=== PATIENT | male | born 1935 | race Caucasian/White ===

== ENCOUNTER 2017-12-24 14:40 | Emergency (ER) | payer OTHER, MEDICARE ==
--- OUTSIDE RECORDS SUMMARY | 2017-12-24 14:45 | XMS REPORT | Clinical Summary ---
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 Disp. Refills Start Date End Date Status atorvastatin Take 20 mg by 1 03/04/2016 Active (LIPITOR) 20 MG mouth once tablet daily. galantamine ER Take 8 mg by Active (RAZADYNE ER) 8 MG mouth daily 24 hr capsule with breakfast. multivitamin with Take 1 tablet Active minerals tablet by mouth daily. lisinopril Take 20 mg by Active (PRINIVIL,ZESTRIL) mouth daily. 20 mg tablet lisinopril TAKE 1 TABLET 30 tablet 3 11/30/2017 Active (PRINIVIL,ZESTRIL) BY MOUTH 20 mg EVERY DAY tabletIndications: Essential hypertension gabapentin Take by mouth 0 03/02/2016 10/15/2017 Discontinued (NEURONTIN) 300 mg once daily. capsule lisinopril Take 1 tablet 90 tablet 3 05/01/2016 05/20/2017 Discontinued (PRINIVIL,ZESTRIL) (20 mg total) 20 mg by mouth tabletIndications: daily. Essential hypertension clopidogrel Take 1 tablet 90 tablet 3 10/21/2016 10/15/2017 Discontinued (PLAVIX) 75 mg (75 mg total) tabletIndications: by mouth once Coronary artery daily. disease involving [place] heart with angina pectoris, unspecified vessel or lesion type (HCC) lisinopril TAKE 1 TABLET 30 tablet 0 05/21/2017 06/13/2017 Discontinued (PRINIVIL,ZESTRIL) BY MOUTH 20 mg EVERY DAY tabletIndications: Essential hypertension lisinopril TAKE 1 TABLET 30 tablet 0 06/15/2017 10/16/2017 Discontinued (PRINIVIL,ZESTRIL) BY MOUTH 20 mg EVERY DAY tabletIndications: Essential hypertension lisinopril TAKE 1 TABLET 30 tablet 0 06/29/2017 07/07/2017 Discontinued (PRINIVIL,ZESTRIL) BY MOUTH 20 mg EVERY DAY tabletIndications: Essential hypertension aspirin (ECOTRIN) Take 81 mg by 10/17/2017 Discontinued 81 MG enteric mouth daily. coated tablet lisinopril TAKE 1 TABLET 30 tablet 0 09/02/2017 10/02/2017 Discontinued (PRINIVIL,ZESTRIL) BY MOUTH 20 mg EVERY DAY tabletIndications: Essential hypertension lisinopril TAKE 1 TABLET 30 tablet 0 10/02/2017 10/15/2017 Discontinued (PRINIVIL,ZESTRIL) BY MOUTH 20 mg EVERY DAY tabletIndications: Essential hypertension clopidogrel TAKE 1 TABLET 90 tablet 3 10/14/2017 10/17/2017 Discontinued (PLAVIX) 75 mg (75 MG TOTAL) tablet BY MOUTH ONCE DAILY. aspirin (ECOTRIN) Take 1 tablet 30 tablet 6 10/17/2017 11/16/2017 81 MG enteric (81 mg total) coated tablet by mouth daily for 30 days. clopidogrel Take 1 tablet 30 tablet 6 10/17/2017 11/16/2017 (PLAVIX) 75 mg (75 mg total) tablet by mouth daily for 30 days. 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/07 without angina pectoris AVD (aortic valve disease) 07/07/2017 SOB (shortness of breath) 07/07/2017 Bilateral carotid bruits 07/07/2017 Stented coronary artery 04/01/2016 Essential hypertension 04/01/2016 Encounters Date Type Specialty Care Team Description 11/27/2017 Refill Cardiology Charissa Martin Med Raheem Cox MD 11/17/2017 Office Visit Cardiology Charissa Martin Coronary artery disease involving [place] coronary artery of [place] heart without angina pectoris ( Primary Dx); MD Kenny Stented coronary artery 10/28/2017 Refill Cardiology Charissa Martin MD 10/17/2017 Patient Outreach Quality Vanessa Dimas RN 10/16/2017 - Hospital Encounter Cardiology Charissa Martin Abnormal stress test; 10/17/2017 MD Kenny Coronary artery disease involving [place] coronary artery of [place] heart without angina pectoris 10/16/2017 Procedure Pass Procedural Cardiology 10/16/2017 Surgery Procedural Charissa Martin Cv selective Cardiology MD Kenny coronary angiography [86029 (CPT)] 10/14/2017 Refill Cardiology Charissa Martin Med Refill MD Kenny 10/02/2017 Refill Cardiology Charissa Martin Med Refill MD Kenny 09/30/2017 Telephone Cardiology Pascual Ruiz MA Appointment (CATH) 09/30/2017 Orders Only Cardiology Pascual Ruiz MA Abnormal stress test ( Primary Dx); Coronary artery disease involving man[place] coronary artery of [place] heart without angina pectoris 09/29/2017 Office Visit Cardiology Charissa Martin Coronary artery disease involving [place] coronary artery of [place] heart without angina pectoris ( Primary Dx); MD Kenny Abnormal stress test 09/02/2017 Refill Cardiology Charissa Martinill MD Kenny 08/18/2017 Orders Only Cardiology Charissa Martin MD 07/28/2017 Telephone Cardiology Pascual Ruiz MA Results (US carotid + echo) 07/07/2017 Office Visit Cardiology Charissa Martin SOB (shortness of breath) ( Primary Dx); MD Kenny Nonspecific abnormal finding on cardiac evaluation; AVD (aortic valve disease); Coronary artery disease of [place] artery of [place] heart with stable angina pectoris; Bilateral carotid bruits 06/28/2017 Refill Cardiology Charissa Martin Med Refill MD Kenny 06/13/2017 Refill Cardiology Charissa Martinill MD Kenny 05/20/2017 Refill Cardiology Charissa Martin Refjasvir Cox MD after 12/23/2016 Social History Tobacco Use Types Packs/Day Years Used Date Never Smoker Smokeless Tobacco: Never Used Alcohol Use Drinks/Week oz/Week Comments No Sex Assigned at Date Recorded Not on file Last Filed Vital Signs Vital Sign Reading Time Taken Blood Pressure 159/70 11/17/2017 2:46 PM CDT Pulse 63 11/17/2017 2:46 PM CDT Temperature 36.7 C (98 F) 10/17/2017 7:27 AM CDT Respiratory Rate 18 10/17/2017 7:27 AM CDT Oxygen Saturation 98% 10/17/2017 7:27 AM CDT Inhaled Oxygen Concentration - - Weight 78.5 kg (173 lb) 11/17/2017 2:46 PM CDT Height 154.9 cm (5' 1") 11/17/2017 2:46 PM CDT Body Mass Index 32.69 11/17/2017 2:46 PM CDT Plan of Treatment Date Type Specialty Care Team Description 05/18/2018 Office Visit Cardiology Charissa Martin MD [address] [address] Health Maintenance Due Date Last Done Comments SHINGRIX VACCINE (#1) 02/18/1984 ZOSTER VACCINE 1994 PNEUMOCOCCAL POLYSACCHARIDE VACCINE AGE 65 AND OVER 1999 PNEUMOCOCCAL-13 1999 INFLUENZA VACCINE 10/14/2017 Implants Implanted Type Area Brim Plater Device Expiration Model / Identifier Date Serial / Lot Stent Coronary Syst Synergy (Mr) 3.00mm X 20mm - [id number] Coronary N/A: BSC 06/19/2018 [id number] / Implanted: 10/16/2017 (Quantity not on file) Stents N/A INTERVENTIONAL / CARDIOLOGY [id number] Stent Coronary Syst Synergy (Mr) 3.50mm X 12mm - [id number] Coronary N/A: BSC 07/06/2019 [id number] / Implanted: 10/16/2017 (Quantity not on file) Stents N/A INTERVENTIONAL / CARDIOLOGY [id number] System Clsr Sut Meditd 6fr Perclose Proglide - [id number] Surgical N/A: CARDONA VASCULAR 07/14/2019 [id number] / Implanted: 10/16/2017 (Quantity not on file) Implants; N/A DEVICES / Expanders; [id number] Extenders; Surgical Wires Procedures Procedure Name Priority Date/Time Associated Comments Diagnosis ECG 12-LEAD Routine 10/17/2017 6:19 Results for this AM CDT procedure are in the results section. HC COMPLETE BLD COUNT Routine 10/17/2017 5:00 Results for this W/AUTO DIFF AM CDT procedure are in the results section. ZZESTIMATED GFR Routine 10/17/2017 4:00 Results for this AM CDT procedure are in the results section. BASIC METABOLIC PANEL Routine 10/17/2017 4:00 Results for this AM CDT procedure are in the results section. ECG 12-LEAD STAT 10/16/2017 2:44 Results for this PM CDT procedure are in the results section. CV INTRACORONARY STENT Routine 10/16/2017 2:15 Abnormal stress Results for this PLACEMENT W ANGIOPLASTY PM CDT test procedure are in SINGLE MAJOR ARTERY OR Coronary artery the results BRANCH disease involving section. manchester coronary artery of [place] heart without angina pectoris CV SELECTIVE CORONARY Routine 10/16/2017 2:15 Abnormal stress Results for this ANGIOGRAPHY PM CDT test procedure are in Coronary artery the results disease involving section. man[place] coronary artery of [place] heart without angina pectoris POC ACT Routine 10/16/2017 1:31 Results for this PM CDT procedure are in the results section. ACTIVATED CLOTTING TIME Routine 10/16/2017 1:28 Results for this PM CDT procedure are in the results section. ECG PRE/POST OP Routine 10/16/2017 10:45 Results for this AM CDT procedure are in the results section. NM MYOCARDIAL PERFUSION Routine 08/18/2017 12:00 AM CDT ECHOCARDIOGRAM 2D Routine 07/20/2017 1:57 AVD (aortic valve Results for this COMPLETE W MMODE PM CDT disease) procedure are in SPECTRAL COLOR DOPPLER SOB (shortness of the results (04917) breath) section. Coronary artery disease of [place] artery of [place] heart with stable angina pectoris Bilateral carotid bruits US CAROTID DUPLEX Routine 07/16/2017 1:49 AVD (aortic valve Results for this BILATERAL PM CDT disease) procedure are in SOB (shortness of the results breath) section. Coronary artery disease of [place] artery of [place] heart with stable angina pectoris Bilateral carotid bruits ECG 12-LEAD Routine 07/07/2017 9:14 Nonspecific Results for this AM CDT abnormal finding on procedure are in cardiac evaluation the results section. after 12/23/2016 Results ECG 12 lead (10/17/2017 6:19 AM)Only the most recent of3 resultswithin the time period is included. Ventricular rate 56 [facility] Atrial rate 56 [facility] MI interval 146 [facility] QRSD interval 110 [facility] QT interval 436 [facility] QTC interval 420 [facility] P axis 1 43 [facility] QRS axis 1 -3 [facility] T wave axis 44 [facility] MUSE EKG impression Sinus bradycardia-Cannot rule out Anterior [facility] MUSE infarct , age undetermined-Abnormal ECG-In automated comparison with ECG of 16-OCT-2017 14:44,-No significant change was found- Performing Organization Address City/State/Zipcode Phone Number [facility] MUSE [address] [place] [address] CBC with platelet and differential (10/17/2017 5:00 AM) WBC 5.72 4.50 - 11.00 k/uL [facility] DEPARTMENT OF PATHOLOGY AND GENOMIC MEDICINE RBC 4.40 4.40 - 6.00 m/uL [facility] DEPARTMENT OF PATHOLOGY AND GENOMIC MEDICINE HGB 13.0 (L) 14.0 - 18.0 g/dL [facility] DEPARTMENT OF PATHOLOGY AND GENOMIC MEDICINE HCT 39.6 (L) 41.0 - 51.0 % [facility] DEPARTMENT OF PATHOLOGY AND GENOMIC MEDICINE MCV 90.0 82.0 - 100.0 fL [facility] DEPARTMENT OF PATHOLOGY AND GENOMIC MEDICINE MCH 29.5 27.0 - 34.0 pg [facility] DEPARTMENT OF PATHOLOGY AND GENOMIC MEDICINE MCHC 32.8 31.0 - 37.0 g/dL [facility] DEPARTMENT OF PATHOLOGY AND GENOMIC MEDICINE RDW - SD 42.0 37.0 - 55.0 fL [facility] DEPARTMENT OF PATHOLOGY AND GENOMIC MEDICINE MPV 11.2 8.8 - 13.2 fL [facility] DEPARTMENT OF PATHOLOGY AND GENOMIC MEDICINE Platelet count 138 (L) 150 - 400 k/uL [facility] DEPARTMENT OF PATHOLOGY AND GENOMIC MEDICINE Nucleated RBC 0.00 /100 WBC [facility] DEPARTMENT OF PATHOLOGY AND GENOMIC MEDICINE Neutrophils 69.2 (H) 39.0 - 69.0 % [facility] DEPARTMENT OF PATHOLOGY AND GENOMIC MEDICINE Lymphocytes 21.2 (L) 25.0 - 45.0 % [facility] DEPARTMENT OF PATHOLOGY AND GENOMIC MEDICINE Monocytes 8.2 0.0 - 10.0 % [facility] DEPARTMENT OF PATHOLOGY AND GENOMIC MEDICINE Eosinophils 0.9 0.0 - 5.0 % [facility] DEPARTMENT OF PATHOLOGY AND GENOMIC MEDICINE Basophils 0.2 0.0 - 1.0 % [facility] DEPARTMENT OF PATHOLOGY AND GENOMIC MEDICINE Immature granulocytes 0.3Comment: 0.0 - 1.0 % [facility] DEPARTMENT OF "Immature PATHOLOGY AND GENOMIC granulocytes" MEDICINE (promyelocytes, myelocytes, metamyelocytes) Specimen Blood Performing Organization Address [facility] Phone Number [facility] DEPARTMENT OF PATHOLOGY AND [address] [place] [address] Estimated GFR (10/17/2017 4:00 AM) GFR Non Af Amer >90 mL/min/1.73 m2 [facility] DEPARTMENT OF PATHOLOGY AND GENOMIC MEDICINE GFR Af Amer >90 mL/min/1.73 m2 [facility] DEPARTMENT OF Comment: PATHOLOGY AND GENOMIC Chronic kidney disease: <60 mL/min/1.73m2 MEDICINE Kidney failure: <15 mL/min/1.73m2 The estimated GFR is calculated from the IDMS-traceable Modification of Diet in Renal Disease Equation. The accuracy of the calculation is poor when the creatinine is normal. Calculated values >90 mL/min/1.73m2 are not reported. This equation has not been validated in children (<18 years), women, the elderly (>70 years), or ethnic groups other than Caucasians and Americans. Specimen Plasma specimen Performing Organization Address [facility] Centercode Phone Number [facility] DEPARTMENT OF PATHOLOGY AND [address] [place] [address] Basic metabolic panel (10/17/2017 4:00 AM) Sodium 143 135 - 148 mEq/L [facility] DEPARTMENT OF PATHOLOGY AND GENOMIC MEDICINE Potassium 3.9 3.5 - 5.0 mEq/L [facility] DEPARTMENT OF PATHOLOGY AND GENOMIC MEDICINE Chloride 104 98 - 112 mEq/L [facility] DEPARTMENT OF PATHOLOGY AND GENOMIC MEDICINE CO2 27 24 - 31 mEq/L [facility] DEPARTMENT OF PATHOLOGY AND GENOMIC MEDICINE Anion gap 12@ANIO 7 - 15 mEq/L [facility] DEPARTMENT OF PATHOLOGY AND GENOMIC MEDICINE BUN 14 8 - 23 mg/dL [facility] DEPARTMENT OF PATHOLOGY AND GENOMIC MEDICINE Creatinine 0.8 0.7 - 1.2 mg/dL [facility] DEPARTMENT OF PATHOLOGY AND GENOMIC MEDICINE Glucose 105 (H) 65 - 99 mg/dL [facility] DEPARTMENT OF PATHOLOGY AND GENOMIC MEDICINE Calcium 9.1 8.8 - 10.2 mg/dL [facility] DEPARTMENT OF PATHOLOGY AND GENOMIC MEDICINE Specimen Plasma specimen Performing Organization Address [facility] Centercode Phone Number [facility] DEPARTMENT OF PATHOLOGY AND [address] [place], [place] [id number] [facility] 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 Medical management of the LCX stenosis Performing Organization Address [facility] Centerconh Phone Number [facility] [address] [place] [address] POC ACT (10/16/2017 1:31 PM) Activated clotting time, POC 382 seconds Specimen Blood Activated clotting time (10/16/2017 1:28 PM) Activated clotting time 382 (H) 96 - 152 sec [facility] DEPARTMENT OF Comment: PATHOLOGY AND GENOMIC Meter ID: [id number] MEDICINE Court Commissioner: Leny Sanchez Performing Organization Address [facility] Phone Number [facility] DEPARTMENT OF PATHOLOGY AND [address] [place] [address] GENOMIC MEDICINE ECG Pre/Post Op (in AM) (10/16/2017 10:45 AM) Ventricular rate 59 [facility] MUSE Atrial rate 59 [facility] MUSE MI interval 152 [facility] MUSE QRSD interval 112 [facility] MUSE QT interval 422 [facility] M[facility] QTC interval 417 [facility] MUSE P axis 1 54 [facility] MUSE QRS axis 1 -1 [facility] MUSE T wave axis 42 [facility] MUSE EKG impression Sinus bradycardia-Incomplete right bundle branch block- Borderline ECG-In automated comparison with ECG of 07-JUL-2017 09:14,- Incomplete right bundle branch block is now present-Criteria for Septal infar [facility] MUSE ct are no longer present- Performing Organization Address [facility] Phone Number [facility] MUSE [address] [place] [address] Nm myocardial perfusion (08/18/2017) Narrative Performed At Echocardiogram complete w contrast and 3D if needed (07/20/2017 1:57 PM) Narrative Performed At [facility] Echocardiography Report Pat.Name:SHANTA PATIÑO Pat.ID:[id number] .Date: 07/20/2017Refer.MD:CHARISSA MARTIN MD Exam Time: 2:04:00 PMStudy Type:Routine Echo Height:70inWeight: 176lb BSA: 1.98 m2 DOBAge:1935,82Y Sex: MALEBP:135/60 HR:58 bpm Sonogrphr: NAVEED Felix FASE Pat. Stat.:OutpatientRoom:[facility] Study Status:Final Echo Event ID:[id number] Order ID:[id number] Reason for Study:Coronary artery disease of [place] artery of [place] heart with stable angina pectoris History / Clinical:Shortness of Breath Procedures:2D Echo, Colorflow Doppler Race:C SUMMARY: LV size is normal. LV EF is normal. Estimated EF is 65-69% RV size is normal. RV systolic function is normal. Estimated PA systolic pressure is 25 mmHg, assuming a mean RAP of 5 mmHg. Moderate thickening and calcification of AV leaflets. Mild aortic valve stenosis. FINDINGS: LV: LV size is normal. LV EF is normal. Overall wall motion is normal.Estimated EF is 65-69% RV: RV size is normal. RV systolic function is normal. LA: LA volume is mildly enlarged. RA: RA size is normal. AO: Aortic root diameter is normal. BRAYDEN: No pericardial effusion. IAS:Interatrial septum is thickened consistent with lipomatous hypertrophy. AV: Moderate thickening and calcification of AV leaflets. A traceof aortic regurgitation. Mild aortic valve stenosis. MV: Moderate mitral annular calcification. PV: No structural PV abnormalities noted. A trace of pulmonic regurgitation. TV: No structural TV abnormalities noted. Mild tricuspid regurgitation Other:Estimated PA systolic pressure is 25 mmHg, assuming a mean RAPof 5 mmHg. MEASUREMENTS: 2D Parasternal [place] LVIDd5.5 cmIndex2.8 cm/m LA Ds4.4 cm LVIDs3.5 cmAo Rtd 3.4 cm Index1.7 cm/m LV%fs 36.8 % LV Bbes410.2 g(122-174) IVSd 0.9 cmLVM Index 88.5 g/m2 LVPWd0.8 cmRWT0.3 LA Sng Plane LA Area 21.4 cm2(8.8-23.4) LA Vol71.2 ml Index36 ml/m LA LngAx 5.4 cm DOPPLER AV For Flow/DEEPAK AV pkVel 247.5 cm/s (100-170) AV AC/ET 0.3 AV mnVel 182.2 cm/Jazmyne TVI52.7 cm AV pkPG 24.5 mmHgAVpkAcRt 40261.4 cm/s2 AV Mean G 14.9 mmHgAV PuIa533.3 cm/s2 AV AC 79 msec (83-118) AV Area1.2 cm2(3-5) AV ET289 msec LVOT For Flow LVOT Area3.1 cm2 LVOT SV 65.2 ml LVOTpkVel 89.9 cm/sHR59.4 bpm LVOTpkPG 3.2 mmHgLVOT CO3.9 l/min LVOTmnPG 1.9 mmHgLVOT CI2 l/m/m2 LVOT TVI20.9 cm Signed 07/20/2017 03:21 PM Matteo Ramos M.D. Procedure Note Interface, Radiology Results In - 07/20/2017 3:22 PM CDT [facility] Echocardiography Report Pat.Name: DAISHANTA CRAWLEY Terri.ID: [id number] .Date: 07/20/2017 Refer.MD: CHARISSA MARTIN MD Exam Time: 2:04:00 PM Study Type:Routine Echo Height: 70in Weight: 176lb BSA: 1.98 m2 Age: 11 1935,82Y Sex: MALE BP: 135/60 HR: 58 bpm Sonogrphr: NAVEED Felix FASE Pat. Stat.:Outpatient Room: [facility] Study Status:Final Echo Event ID:[id number] Order ID: [id number] Reason for Study:Coronary artery disease of [place] artery of [place] heart with stable angina pectoris History / Clinical:Shortness of Breath Procedures:2D Echo, Colorflow Doppler Race: C SUMMARY: LV size is normal. LV EF is normal. Estimated EF is 65-69% RV size is normal. RV systolic function is normal. Estimated PA systolic pressure is 25 mmHg, assuming a mean RAP of 5 mmHg. Moderate thickening and calcification of AV leaflets. Mild aortic valve stenosis. FINDINGS: LV: LV size is normal. LV EF is normal. Overall wall motion is normal. Estimated EF is 65-69% RV: RV size is normal. RV systolic function is normal. LA: LA volume is mildly enlarged. RA: RA size is normal. AO: Aortic root diameter is normal. BRAYDEN: No pericardial effusion. IAS: Interatrial septum is thickened consistent with lipomatous hypertrophy. AV: Moderate thickening and calcification of AV leaflets. A trace of aortic regurgitation. Mild aortic valve stenosis. MV: Moderate mitral annular calcification. PV: No structural PV abnormalities noted. A trace of pulmonic regurgitation. TV: No structural TV abnormalities noted. Mild tricuspid regurgitation Other: Estimated PA systolic pressure is 25 mmHg, assuming a mean RAP of 5 mmHg. MEASUREMENTS: 2D Parasternal [place] LVIDd 5.5 cm Index 2.8 cm/m LA Ds 4.4 cm LVIDs 3.5 cm Ao Rtd 3.4 cm Index 1.7 cm/m LV%fs 36.8 % LV Mass 175.2 g (122-174) IVSd 0.9 cm LVM Index 88.5 g/m2 LVPWd 0.8 cm RWT 0.3 LA Sng Plane LA Area 21.4 cm2 (8.8-23.4) LA Vol 71.2 ml Index 36 ml/m LA LngAx 5.4 cm DOPPLER AV For Flow/DEEPAK AV pkVel 247.5 cm/s (100-170) AV AC/ET 0.3 AV mnVel 182.2 cm/s AV TVI 52.7 cm AV pkPG 24.5 mmHg AVpkAcRt 98808.4 cm/s2 AV Mean G 14.9 mmHg AV DeRt 855.3 cm/s2 AV AC 79 msec (83-118) AV Area 1.2 cm2 (3-5) AV ET 289 msec LVOT For Flow LVOT Area 3.1 cm2 LVOT SV 65.2 ml LVOTpkVel 89.9 cm/s HR 59.4 bpm LVOTpkPG 3.2 mmHg LVOT CO 3.9 l/min LVOTmnPG 1.9 mmHg LVOT CI 2 l/m/m2 LVOT TVI 20.9 cm Signed 07/20/2017 03:21 PM Matteo Ramos M.D. Performing Organization Address City/State/Zipcode Phone Number [facility] [address] [place] [address] Pv carotid duplex (07/16/2017 1:49 PM) Narrative Performed At [facility] Carotid Artery Ultrasound Report Pat.Name:DAISHANTA CRAWLEY Terri.ID:[id number] .Date: 07/16/2017Refcristina.:CHARISSA MARTIN MD Exam Time: 2:04:00 PMStudy Type:Carotid DOBAge:1935,82Y Sex: MALE Sonogrphr: Tanja Bardales, ANNAMS, RDCS, RVT Pat. Stat.:Outpatient Room:[place] [address]: [id number] Echo Event ID:[id number] Order ID:[id number] Reason for Study:Bilateral carotid bruit SUMMARY: PHYSICAL ASSESSMENT BloodPulsesCarotid Pressure Carotid TemporalBruit Right 135/60 ++0 Left 135/60 ++0 CAROTID ARTERY SCAN RIGHT:There is intimal thickeningin the common carotid artery. There is hard and calcified plaque noted in the bulb extending into the proximal internal and external carotid artery.Colorflow is minimally disturbed.Vertebral artery flow is antegrade. Subclavian artery flow is triphasic. LEFT: There is intimal thickeningin the common carotid artery. There is hard and calcified plaque noted in the bulb extending into the proximal internal and external carotid artery.Colorflow is minimally disturbed.Vertebral artery flow is antegrade. Subclavian artery flow is triphasic. PRELIMINARY FINDINGS <50%stenosis in the bilateral internal carotid artery. PHYSICIAN INTERPRETATION Bilateral carotid artery examination demonstrates plaque in the bilateral internal carotid artery without hemodynamically significant stenosis. (30-40%) Carotid Findings:RightLeft Verteb.Flw AntegradeAntegrade Subclavian TriphasicTriphasic MEASUREMENTS: DOPPLER Right SCA Prox SCA Prox PSV82.3 cm/s Right CCA Dist CCA Dist PSV68.6 cm/sCCA Dist EDV6.09 cm/s Right CCA Mid CCA Mid PSV 71.6 cm/sCCA Mid EDV 6.09 cm/s Right CCA Prox CCA Prox PSV57.9 cm/sCCA Prox EDV 0 cm/s Right Bulb Bulb PSV51.1 cm/sBulb EDV1.89 cm/s Right ECA Prox ECA Prox PSV 102 cm/sECA Prox EDV 0 cm/s Right ICA Dist ICA Dist PSV65.4 cm/Clarissa Dist EDV11.8 cm/s Right ICA Mid ICA Mid PSV 63.6 cm/Clarissa Mid EDV 13.4 cm/s Right ICA Prox ICA Prox PSV75.4 cm/Clarissa Prox EDV6.85 cm/s Right Vertebral Vertebral PSV 48.2 cm/sVertebral EDV0 cm/s Left SCA Prox SCA Prox PSV 114 cm/s Left CCA Dist CCA Dist PSV56.7 cm/sCCA Dist EDV8.11 cm/s Left CCA Mid CCA Mid PSV 77.1 cm/sCCA Mid EDV9.4 cm/s Left CCA Prox CCA Prox PSV82.7 cm/sCCA Prox EDV 9.4 cm/s Left Bulb Bulb PSV56.1 cm/sBulb EDV 0 cm/s Left ECA Prox ECA Prox PSV 177 cm/s Left ICA Dist ICA Dist PSV65.7 cm/Clarissa Dist EDV6.91 cm/s Left ICA Mid ICA Mid PSV 75.3 cm/Clarissa Mid EDV 16.3 cm/s Left ICA Prox ICA Prox PSV68.5 cm/Clarissa Prox EDV8.79 cm/s Left Vertebral Vertebral PSV 32.8 cm/sVertebral EDV0 cm/s Right ICA/CCA Ratio ICA/CCA PSV 1.05 Left ICA/CCA Ratio ICA/CCA PSV0.888 Signed 07/23/2017 01:11 PM Charissa Martin MD Procedure Note Interface, Radiology Results In - 07/23/2017 1:11 PM CDT [facility] Carotid Artery Ultrasound Report Pat.Name: SHANTA PATIÑO Pat.ID: [id number] St.Date: 07/16/2017 Refer.MD: CHARISSA MARTIN MD Exam Time: 2:04:00 PM Study Type:Carotid Age: 12 1935,82Y Sex: MALE Sonogrphr: Tanja Bardales RDMS, RDCS, RVT Pat. Stat.:Outpatient Room: [facility] 4: [id number] Echo Event ID:[id number] Order ID: [id number] Reason for Study:Bilateral carotid bruit SUMMARY: PHYSICAL ASSESSMENT Blood Pulses Carotid Pressure Carotid Temporal Bruit Right 135/60 + + 0 Left 135/60 + + 0 CAROTID ARTERY SCAN RIGHT: There is intimal thickening in the common carotid artery. There is hard and calcified plaque noted in the bulb extending into the proximal internal and external carotid artery. Colorflow is minimally disturbed. Vertebral artery flow is antegrade. Subclavian artery flow is triphasic. LEFT: There is intimal thickening in the common carotid artery. There is hard and calcified plaque noted in the bulb extending into the proximal internal and external carotid artery. Colorflow is minimally disturbed. Vertebral artery flow is antegrade. Subclavian artery flow is triphasic. PRELIMINARY FINDINGS <50% stenosis in the bilateral internal carotid artery. PHYSICIAN INTERPRETATION Bilateral carotid artery examination demonstrates plaque in the bilateral internal carotid artery without hemodynamically significant stenosis. (30-40%) Carotid Findings: Right Left Verteb.Flw Antegrade Antegrade Subclavian Triphasic Triphasic MEASUREMENTS: DOPPLER Right SCA Prox SCA Prox PSV 82.3 cm/s Right CCA Dist CCA Dist PSV 68.6 cm/s CCA Dist EDV 6.09 cm/s Right CCA Mid CCA Mid PSV 71.6 cm/s CCA Mid EDV 6.09 cm/s Right CCA Prox CCA Prox PSV 57.9 cm/s CCA Prox EDV 0 cm/s Right Bulb Bulb PSV 51.1 cm/s Bulb EDV 1.89 cm/s Right ECA Prox ECA Prox PSV 102 cm/s ECA Prox EDV 0 cm/s Right ICA Dist ICA Dist PSV 65.4 cm/s ICA Dist EDV 11.8 cm/s Right ICA Mid ICA Mid PSV 63.6 cm/s ICA Mid EDV 13.4 cm/s Right ICA Prox ICA Prox PSV 75.4 cm/s ICA Prox EDV 6.85 cm/s Right Vertebral Vertebral PSV 48.2 cm/s Vertebral EDV 0 cm/s Left SCA Prox SCA Prox PSV 114 cm/s Left CCA Dist CCA Dist PSV 56.7 cm/s CCA Dist EDV 8.11 cm/s Left CCA Mid CCA Mid PSV 77.1 cm/s CCA Mid EDV 9.4 cm/s Left CCA Prox CCA Prox PSV 82.7 cm/s CCA Prox EDV 9.4 cm/s Left Bulb Bulb PSV 56.1 cm/s Bulb EDV 0 cm/s Left ECA Prox ECA Prox PSV 177 cm/s Left ICA Dist ICA Dist PSV 65.7 cm/s ICA Dist EDV 6.91 cm/s Left ICA Mid ICA Mid PSV 75.3 cm/s ICA Mid EDV 16.3 cm/s Left ICA Prox ICA Prox PSV 68.5 cm/s ICA Prox EDV 8.79 cm/s Left Vertebral Vertebral PSV 32.8 cm/s Vertebral EDV 0 cm/s Right ICA/CCA Ratio ICA/CCA PSV 1.05 Left ICA/CCA Ratio ICA/CCA PSV 0.888 Signed 07/23/2017 01:11 PM Charissa Martin MD Performing Organization Address City/State/[place] Phone Number [address] [phone] [place] [address] after 12/23/2016 Insurance Payer Benefit Plan / Group Subscriber ID Type Phone Address MEDICARE MEDICARE PART A AND B xxxxxxxxxx Medicare [place], [place] AARP AARP SUPPLEMENT xxxxxxxxxxx Commercial Home: [address] [phone] [place], [place] [phone]
--- OUTSIDE RECORDS SUMMARY | 2017-12-24 14:45 | XMS REPORT | Continuity of Care Document ---
:1935 Author Organization Interface Problems Problem Status Onset Date Classification Date Comments Source Reported Medications Medication Details Route Status Patient Ordering Order Source Instructions Provider Date Allergies, Adverse Reactions, Alerts Substance Category Reaction Severity Reaction Status Date Comments Source type Reported Immunizations Immunization Date Given Site Status Last Updated Comments Source Results Order Results Value Reference Date Interpretation Comments Source Name Range Vital Signs Vital Sign Value Date Comments Source Encounters Location Location Encounter Encounter Reason Attending ADM DC Status Source Details Type Number For Provider Date Date Visit Outpatient [id number] CANDY 12/01 [facility] [address] [place] [address] Outpatient [id number] CANDY 12/[address] Procedures Procedure Code Date Perfomer Comments Source
[2017-12-24 16:04] LABS: Absolute Lymphocytes (CBC) 0.4 K/uL (0.7-4.9); Absolute Monocytes 0.3 K/uL (0.1-1.3); Absolute Neutrophil 7.1 K/uL (1.8-8.0); Basophils % 0.2 % (0-1.3); Eosinophils % 0.3 % (0-4.4); Hematocrit 36.8 % (39.6-49.0); MCH 30.8 pg (27.0-35.0); MCV 86.9 fL (80-100); MPV 9.1 fL (7.6-11.3); Monocytes % 3.5 % (3.3-12.3); RBC Red Blood Cell Count 4.24 M/uL (4.33-5.43)
[2017-12-24 16:06] LABS: Protime INR 0.96
[2017-12-24 16:24] LABS: ALT/SGPT 36 U/L (12-78); AST/SGOT 40 U/L (15-37); Albumin 3.8 g/dL (3.4-5.0); Alkaline Phosphatase 80 U/L (45-117); BUN Blood Urea Nitrogen 22 mg/dL (7-18); Bicarbonate 28 mmol/L (21-32); Bilirubin Direct 0.1 mg/dL (0-0.2); Bilirubin Total 0.3 mg/dL (0.2-1.0); Glucose Level 133 mg/dL (74-106); Potassium 3.9 mmol/L (3.5-5.1); Protein, Total 6.6 g/dL (6.4-8.2); Sodium Level 139 mmol/L (136-145)
--- NOTE | 2017-12-24 16:30 | RAD REPORT ---
EXAM DESCRIPTION: Cailin Single View12/24/2017 4:11 pm CLINICAL HISTORY: fever COMPARISON: none FINDINGS: The lungs appear clear of acute infiltrate. The heart is normal size IMPRESSION: No acute abnormalities displayed
[2017-12-24 16:51] LABS: Blood Morphology Comment NOT SEEN (NOT SEEN); Platelet Estimate ADEQ; Urine White Blood Cell Casts OK
[2017-12-24 18:24] LABS: Urine Blood NEGATIVE (NEG); Urine Glucose NEGATIVE (NEG); Urine Protein NEGATIVE (NEG); Urine pH 5.5 (5.0-7.0)
[2017-12-24 19:08] LABS: Urine Bacteria <20 /HPF (NONE SEEN); Urine Culture Reflex Order NOT NEEDED; Urine RBC <5 /HPF (NONE SEEN)
[2017-12-24] MEDS ORDERED: NA CHLORIDE 0.9% 500 ML ONE (19:30)
--- NOTE | 2017-12-24 19:37 | ER ---
Nurse's Notes [facility] Name: Tiago Patiño Age: 82 yrs Sex: Male : 1935 Arrival Date: 12/24/2017 Time: 14:43 Bed 23 Private MD: Diagnosis: Fever, unspecified;Viral infection, unspecified Presentation: 12/24 14:43 Presenting complaint: EMS states: called out for difficulty standing and pain in mid em back pain, hx of UTI's, denies trauma, low grade temp 101.2, currently denies pain, VSS. Transition of care: patient was not received from another setting of care. Onset of symptoms was December 24, 2017. Care prior to arrival: None. 14:43 Method Of Arrival: EMS: [facility] em 14:54 Care prior to arrival: Medication(s) given: Tylenol. em 14:54 Acuity: SCOTT 3 hb 14:54 Risk Assessment: Do you want to hurt yourself or someone else? Patient reports no hb desire to harm self or others. 16:05 Initial Sepsis Screen: Does the patient meet any 2 criteria? No. Patient's initial kr2 sepsis screen is negative. Does the patient have a suspected source of infection? No. Patient's initial sepsis screen is negative. Triage Assessment: 14:47 General: Appears in no apparent distress. comfortable, Behavior is calm, cooperative. em Pain: Denies pain. Historical: - Allergies: 14:47 No Known Allergies; em - PMHx: 14:47 UTI; em - PSHx: 14:47 Heart stents; em - Immunization history:: Flu vaccine is not up to date. - Social history:: Smoking status: Patient/guardian denies using tobacco. - Ebola Screening: : Patient negative for fever greater than or equal to 101.5 degrees Fahrenheit, and additional compatible Ebola Virus Disease symptoms Patient denies exposure to infectious person Patient denies travel to an Ebola-affected area in the 21 days before illness onset No symptoms or risks identified at this time. Screenin:48 Abuse screen: Denies threats or abuse. Nutritional screening: No deficits noted. em Tuberculosis screening: No symptoms or risk factors identified. Fall Risk None identified. Assessment: 15:15 General: Appears in no apparent distress. comfortable, well groomed, well developed, kr2 well nourished, Behavior is calm, cooperative, appropriate for age. Pain: Denies pain. Pain: Complains of pain in Patient's spouse reports he was complaining of back pain earlier today, patient is confused at times. Neuro: Level of Consciousness is awake, alert, obeys commands, Oriented to person, place, situation. Cardiovascular: Capillary refill Patient's skin is warm and dry. Respiratory: Airway is patent Respiratory effort is even, unlabored, Respiratory pattern is regular, symmetrical. GI: Abdomen is flat, non-distended, Abd is soft and non tender X 4 quads. : Denies burning with urination, Parent/caregiver report the patient having Patient does have a history of UTI's. Derm: Skin is intact, is healthy with good turgor, Skin is pink, warm \T\ dry. Musculoskeletal: Circulation, motion, and sensation intact. 16:15 Reassessment: Patient appears in no apparent distress at this time. Patient and/or kr2 family updated on plan of care and expected duration. Pain level reassessed. Patient is alert, oriented x 3, equal unlabored respirations, skin warm/dry/pink. Patient denies pain at this time. 17:39 Reassessment: Patient appears in no apparent distress at this time. Patient and/or kr2 family updated on plan of care and expected duration. Pain level reassessed. Patient is alert, oriented x 3, equal unlabored respirations, skin warm/dry/pink. Per provider ok to give patient water, patient provided with 2 cups of water Patient denies pain at this time. 18:55 Reassessment: Patient appears in no apparent distress at this time. Patient and/or kr2 family updated on plan of care and expected duration. Pain level reassessed. Patient is alert, oriented x 3, equal unlabored respirations, skin warm/dry/pink. Patient denies pain at this time. 19:42 Reassessment: Waiting for IV fluids to complete prior to discharge. kr2 Vital Signs: 14:47 BP 144 / 57; Pulse 79; Resp 16; Temp 100.2(O); Pulse Ox 96% on R/A; Pain 0/10; em 16:06 BP 116 / 51; Pulse 70; Resp 19; Pulse Ox 95% on R/A; kr2 17:38 BP 135 / 61; Pulse 63; Resp 17; Temp 99.2; Pulse Ox 99% on R/A; kr2 18:55 BP 125 / 55; Pulse 60; Resp 17; Pulse Ox 96% on R/A; kr2 19:30 BP 128 / 56; Pulse 62; Resp 17; Pulse Ox 99% on R/A; kr2 ED Course: 14:43 Patient arrived in ED. em 14:47 Arm band placed on. em 14:48 Patient has correct armband on for positive identification. Placed in gown. Bed in low em position. Call light in reach. Side rails up X2. 14:53 Bryan Cramer NP is PHCP. pm1 14:53 Ray Stark MD is Attending Physician. pm1 14:58 Triage completed. hb 15:25 Missed attempt(s): 20 gauge in right forearm. Bleeding controlled, band aid applied, kr2 catheter tip intact. 15:40 Inserted saline lock: 20 gauge in right forearm, using aseptic technique. Blood kr2 collected. 16:06 Cyndee Stockton, MAGGIE is Primary Nurse. kr2 16:12 Chest Single View XRAY In Process Unspecified. EDMS 20:11 No provider procedures requiring assistance completed. IV discontinued, intact, kr2 bleeding controlled, No redness/swelling at site. Pressure dressing applied. Administered Medications: 19:27 Drug: NS 0.9% 500 ml Route: IV; Rate: bolus; Site: right forearm; kr2 20:10 Follow up: Response: No adverse reaction; IV Status: Completed infusion kr2 Outcome: 19:36 Discharge ordered by MD. pm1 20:11 Discharged to home via wheelchair, with family, with friend. kr2 20:11 Condition: good 20:11 Discharge instructions given to family, Instructed on discharge instructions, follow up and referral plans. Demonstrated understanding of instructions, follow-up care. 20:12 Patient left the ED. kr2 Signatures: Dispatcher [employer] EDMS Sen Barnard, BALL ROLLING MACHINE OPERATOR BALL ROLLING MACHINE OPERATOR em Bryan Cramer NP PARK INTERPRETIVE RANGER pm1 Cassy Carl, RN RN hb Cyndee Stockton, MAGGIE RN kr2 Corrections: (The following items were deleted from the chart) 17:43 17:38 BP 135 / 61; Pulse 63bpm; Resp 17bpm; Pulse Ox 99% RA; kr2 kr2
--- NOTE | 2017-12-24 19:37 | EDPHYS ---
Physician Documentation [facility] Name: Tiago Patiño Age: 82 yrs Sex: Male : 1935 Arrival Date: 12/24/2017 Time: 14:43 Bed 23 Private MD: ED Physician Ray Stark HPI: 12/24 16:00 This 82 yrs old Male presents to ER via EMS with complaints of Fever. pm1 16:00 The patient reports fever, that was measured at 101.2 degrees Fahrenheit. Onset: The pm1 symptoms/episode began/occurred just prior to arrival, today. Modifying factors: there are no obvious modifying factors. Associated signs and symptoms: Pertinent negatives: abdominal pain, backache, chest pain, cough, diarrhea, earache, headache, nausea, runny nose, sinus congestion, sinus drainage, skin rash, shortness of breath, sore throat, vomiting. Severity of symptoms: in the emergency department the symptoms No complaints in the ER. The patient has not experienced similar symptoms in the past. The patient has not recently seen a physician. Historical: - Allergies: 14:47 No Known Allergies; em - PMHx: 14:47 UTI; em - PSHx: 14:47 Heart stents; em - Immunization history:: Flu vaccine is not up to date. - Social history:: Smoking status: Patient/guardian denies using tobacco. - Ebola Screening: : Patient negative for fever greater than or equal to 101.5 degrees Fahrenheit, and additional compatible Ebola Virus Disease symptoms Patient denies exposure to infectious person Patient denies travel to an Ebola-affected area in the 21 days before illness onset No symptoms or risks identified at this time. ROS: 16:00 Eyes: Negative for injury, pain, redness, and discharge, ENT: Negative for injury, pm1 pain, and discharge, Neck: Negative for injury, pain, and swelling, Cardiovascular: Negative for chest pain, palpitations, and edema, Respiratory: Negative for shortness of breath, cough, wheezing, and pleuritic chest pain, Abdomen/GI: Negative for abdominal pain, nausea, vomiting, diarrhea, and constipation, Back: Negative for injury and pain, : Negative for injury, bleeding, discharge, and swelling, MS/Extremity: Negative for injury and deformity, Skin: Negative for injury, rash, and discoloration, Neuro: Negative for headache, weakness, numbness, tingling, and seizure. 16:00 Constitutional: Positive for body aches, fever. Exam: 16:00 Constitutional: This is a well developed, well nourished patient who is awake, alert, pm1 and in no acute distress. Head/Face: Normocephalic, atraumatic. Eyes: Pupils equal round and reactive to light, extra-ocular motions intact. Lids and lashes normal. Conjunctiva and sclera are non-icteric and not injected. Cornea within normal limits. Periorbital areas with no swelling, redness, or edema. ENT: Nares patent. No nasal discharge, no septal abnormalities noted. Tympanic membranes are normal and external auditory canals are clear. Oropharynx with no redness, swelling, or masses, exudates, or evidence of obstruction, uvula midline. Mucous membranes moist. Neck: Trachea midline, no thyromegaly or masses palpated, and no cervical lymphadenopathy. Supple, full range of motion without nuchal rigidity, or vertebral point tenderness. No Meningismus. Chest/axilla: Normal chest wall appearance and motion. Nontender with no deformity. No lesions are appreciated. Cardiovascular: Regular rate and rhythm with a normal S1 and S2. No gallops, murmurs, or rubs. Normal PMI, no JVD. No pulse deficits. Respiratory: Lungs have equal breath sounds bilaterally, clear to auscultation and percussion. No rales, rhonchi or wheezes noted. No increased work of breathing, no retractions or nasal flaring. Abdomen/GI: Soft, non-tender, with normal bowel sounds. No distension or tympany. No guarding or rebound. No evidence of tenderness throughout. Back: No spinal tenderness. No costovertebral tenderness. Full range of motion. Skin: Warm, dry with normal turgor. Normal color with no rashes, no lesions, and no evidence of cellulitis. MS/ Extremity: Pulses equal, no cyanosis. Neurovascular intact. Full, normal range of motion. 16:00 Neuro: Orientation: is normal, Mentation: is normal, Cerebellar function: normal finger to nose testing, Motor: is normal, moves all fours, Sensation: is normal, no obvious gross deficits. 19:30 Neuro: Gait: is steady, at a normal pace, without difficulty. pm1 Vital Signs: 14:47 BP 144 / 57; Pulse 79; Resp 16; Temp 100.2(O); Pulse Ox 96% on R/A; Pain 0/10; em 16:06 BP 116 / 51; Pulse 70; Resp 19; Pulse Ox 95% on R/A; kr2 17:38 BP 135 / 61; Pulse 63; Resp 17; Temp 99.2; Pulse Ox 99% on R/A; kr2 18:55 BP 125 / 55; Pulse 60; Resp 17; Pulse Ox 96% on R/A; kr2 19:30 BP 128 / 56; Pulse 62; Resp 17; Pulse Ox 99% on R/A; kr2 MDM: 14:54 Patient medically screened. pm1 19:30 Refusal of service: The patient/guardian displays adequate decision making capability pm1 and despite a detailed discussion of alternatives, benefits, risks, and consequences refuses: Admission to the hospital for further work-up and treatment, Patient feels good and has no complaints. He does not want to stay in the hospital and his is in agreement with his decision. Patient and educated on return precautions. 19:33 Data reviewed: vital signs. Data interpreted: Pulse oximetry: on room air is 96 %. pm1 Interpretation: normal. Counseling: I had a detailed discussion with the patient and/or guardian regarding: the historical points, exam findings, and any diagnostic results supporting the discharge/admit diagnosis, lab results, radiology results, the need for outpatient follow up, to return to the emergency department if symptoms worsen or persist or if there are any questions or concerns that arise at home. 12/24 14:59 Order name: Urine Microscopic Only; Complete Time: 19:09 pm1 12/24 15:01 Order name: Basic Metabolic Panel; Complete Time: 16:31 pm1 12/24 15:01 Order name: Blood Culture Adult (2) pm1 12/24 15:01 Order name: CBC with Diff; Complete Time: 16:56 pm1 12/24 15:01 Order name: LFT's; Complete Time: 16:31 pm1 12/24 15:01 Order name: Procalcitonin; Complete Time: 16:56 pm1 12/24 15:22 Order name: Flu; Complete Time: 16:56 pm1 12/24 15:24 Order name: Lactate; Complete Time: 16:31 pm1 12/24 15:24 Order name: Lipase; Complete Time: 16:23 pm1 12/24 15:24 Order name: Protime (+inr); Complete Time: 16:56 pm1 12/24 15:24 Order name: Ptt, Activated; Complete Time: 16:56 pm1 12/24 15:24 Order name: Chest Single View XRAY; Complete Time: 16:31 pm1 12/24 16:30 Order name: CBC Smear Scan; Complete Time: 16:56 EDMS 12/24 18:00 Order name: Urine Dipstick--Ancillary (enter results); Complete Time: 18:45 eb 12/24 14:59 Order name: Urine Dipstick-Ancillary (obtain specimen); Complete Time: 18:00 pm1 12/24 15:01 Order name: Labs collected and sent; Complete Time: 15:57 pm1 12/24 15:24 Order name: Cardiac monitoring; Complete Time: 15:51 pm1 12/24 15:24 Order name: EKG - Nurse/Tech; Complete Time: 17:59 pm1 12/24 15:24 Order name: O2 Per Protocol; Complete Time: 15:51 pm1 12/24 15:24 Order name: O2 Sat Monitoring; Complete Time: 15:51 pm1 Administered Medications: 19:27 Drug: NS 0.9% 500 ml Route: IV; Rate: bolus; Site: right forearm; kr2 20:10 Follow up: Response: No adverse reaction; IV Status: Completed infusion kr2 Disposition: 12/24/17 19:36 Discharged to Home. Impression: Fever, unspecified, Viral infection, unspecified. - Condition is Stable. - Discharge Instructions: Fever, Adult. - Medication Reconciliation Form, Thank You Letter, Antibiotic Education form. - Follow up: Emergency Department; When: As needed; Reason: Worsening of condition. Follow up: Private Physician; When: 2 - 3 days; Reason: Recheck today's complaints, Continuance of care, Re-evaluation by your physician. - Problem is new. - Symptoms have improved. Addendum: 12/26/2017 13:34 Co-signature as Attending Physician, Ray Stark MD I agree with the assessment and k dr plan of care. Signatures: Dispatcher [employer] Ray Sinha MD MD kdr Munoz, Edgar, GREIGE GOODS INSPECTOR GREIGE GOODS INSPECTOR Bryan Mcarthur, NEWS WIRE PHOTO OPERATOR NEWS WIRE PHOTO OPERATOR pm1 Cyndee Stockton, RN RN kr2 Corrections: (The following items were deleted from the chart) 12/24 20:12 19:36 12/24/2017 19:36 Discharged to Home. Impression: Fever, unspecified; Viral kr2 infection, unspecified. Condition is Stable. Forms are Medication Reconciliation Form, Thank You Letter, Antibiotic Education, Prescription Opioid Use. Follow up: Emergency Department; When: As needed; Reason: Worsening of condition. Follow up: Private Physician; When: 2 - 3 days; Reason: Recheck today's complaints, Continuance of care, Re-evaluation by your physician. Problem is new. Symptoms have improved. pm1
[2017-12-24 20:36] VITALS: TEMP 99.2
[2017-12-24 20:38] VITALS: BP 128/56; O2SAT 99
== END 2017-12-24 20:12 | disposition home or self-care (01) ==
LOC: ER 14:40
DX: B34.9 Viral infection, unspecified (principal); Z95.818 Presence of other cardiac implants and grafts
CPT/HCPCS: 36415; 71045; 80048; 80076; 81003; 81015; 83605; 83690; 84145; 85025; 85610; 85730; 87040; 87804; 96360; 99284